=== PATIENT | female | born 1950 | race Caucasian/White ===

== ENCOUNTER 2023-01-29 14:54 | Outpatient (AMB) | payer MEDICARE, SELFPAY ==
--- NOTE | 2023-01-29 14:58 | A.OFFPC_ITS ---
Vital Signs 01/29/23 14:59 Height 5 ft 6 in Weight 215 lb 3 oz BMI 34.7 BP 138/78 Blood Pressure Location Lt brachial Position Sitting Respiration 12 Pulse 74 Pulse Source Pulse Oximeter Temp 97.9 F Temp Source Oral Pulse Oximetry (%) 97 Oxygen Delivery Method Room Air Handedness Right Intake Visit Reasons: NPV/Diabetic and medication Intake Note: Patient is here to establish care as a new patient and has a diagnosis of diabetes. Patient reports her last A1C was in October of 2022 @ 8%. Patient reports she was being followed by her previous PCP for diabetic care. 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 Patient reports she uses cologaurd vs colonoscopy. Patient reports her last mammogram was ~ 1 year ago. Detonator Assembler Required: No Accompanied by: Self / Same As Patient Allergies Sulfa (Sulfonamide Antibiotics) Allergy (Severe, Verified 01/29/23 15:09) Anaphylaxis Medication List - Last Reconciled 01/29/23 by Juliocesar Marie MD ergocalciferol (vitamin D2) 50,000 units PO .weekly escitalopram oxalate 20 mg PO DAILY glimepiride 4 mg PO BID hydrochlorothiazide 25 mg PO DAILY lisinopril 40 mg PO DAILY metformin ER 500 mg PO BID methocarbamol 750 mg PO BID PRN semaglutide (Rybelsus) 3 mg PO .Q AM Tobacco use date assessed: 01/29/23 Fall risk assessment: No Falls in past year Last assessed Fall Risk: 01/29/23 Dental Screening Dental Screen Date: 01/29/23 Did you have a dental visit in the last 12 months?: No Did you have a dental problem in the last 6 months where you did not have access to dental care?: No Was dental information given to patient?: Patient has dentist HPI NPV/Diabetic and medication HPI Details New patient Prior PCP:?Shaina Fonseca [place] Last office visit/CPE: 6 months Acute issue(s): Diabetes -Last A1c in October was 8.0%. Depression/Anxiety L1 Spondylolisthesis with low back pain and using methocarbamol. PMHx: Diabetes, Hypertension, Depression/Anxiety, Spondylolisthesis, Cardiac hypertrophy, benign inverted T-wave seen by Cardiology SurgHx: 2x D&Cs 1978 and 1977, x2, Gallbladder, Pancreatic drain due to Gallstone pancreatitis and drain FHx: Mom: HTN, CAD, Arthritis. Dad: Insulin dep. DM2, CAD, HTN SocHx: Nonsmoker. EtOH Occasional glass of wine or 2 max. No drugs. 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 ) Vision needs: Yes (needs new glasses) Questionnaire PHQ-9 Over the last 2 weeks, how often have you been bothered by any of the following problems? 1. Little interest or pleasure in doing things: not at all 2. Feeling down, depressed, or hopeless: not at all 3. Trouble falling or staying asleep, or sleeping too much: nearly every day 4. Feeling tired or having little energy: nearly every day 5. Poor appetite or overeating: several days 6. Feeling bad about yourself - or that you are a failure or have let yourself or your family down: several days 7. Trouble concentrating on things, such as reading the newspaper or watching television: not at all 8. Moving or speaking so slowly that other people could have noticed. Or the opposite - being so fidgety or restless that you have been moving around a lot more than usual: several days 9. Thoughts that you would be better off or of hurting yourself in some way: nearly every day Total score: 12 Depression Screening Interpretation: Positive Depression Screening Done: Yes [id number] - PHQ-9 Billing: Yes Source: Developed by Drs. Sebas Mejias, Nina French, Yon Cortez and colleagues, with an educational victor manuel from [employer]. Thrive Questionnaire Date Thrive assessed: 01/29/23 I am a: Patient What is your living situation today?: I have a steady place to live Within the past 12 months, did the food you bought not last and you didn't have the money to get more?: Never true Within the past 12 months, did you worry whether your food would run out before you got money to buy more?: Never true Do you have trouble paying for medicines?: No Do you have trouble getting transportation to medical appointments?: No Do you have trouble paying your heating and electricity bill?: No Do you have trouble taking care of your child, family member or friend?: Yes Do you have trouble with day-to-day activities such as bathing, preparing meals, shopping, managing finances, etc.?: No Are you currently unemployed and looking for a job?: No Are you interested in more education?: Yes Currently or been in a relationship where the following occur: no concerns reported AUDIT C Alcohol Use Questionnaire (AUDIT-C) 1. How often do you have a drink containing alcohol?: 2-4 times a month 2. How many drinks containing alcohol do you have on a typical day when you are drinking?: 1 or 2 3. How often do you have six or more drinks on one occasion?: Never Total Score: 2 KATHRYN-7 AMB Questionnaire KATHRYN-7 Date KATHRYN - 7 assessed: 01/29/23 Feeling nervous, anxious, or on edge: 1 = Several days Not being able to stop or control worryin = Several days Worrying too much about different things: 1 = Several days Trouble relaxin = Not at all Being so restless that it is hard to sit still: 1 = Several days Becoming easily annoyed or irritable: 0 = Not at all Feeling afraid as if something awful might happen: 1 = Several days Total KATHRYN-7 score (0-4 normal; 5-9 mild; 10-14 moderate; 15-21 severe): 5 Source: Developed by Drs. Sebas Mejias, Nina French, Yon Cortez and colleagues, with an educational victor manuel from [employer]. KATHRYN-7 Assessment Billing KATHRYN-7 Assessment Tool: KATHRYN-7 Assessment 50881 Review of Systems Const Denies chills, Denies fatigue, Denies fever(s), Denies headache(s) and Denies weakness ENT Denies dizziness and Denies headache(s) Card Denies chest pain, Denies lightheadedness, Denies dyspnea and Denies other (Palpitations) Resp Denies cough, Denies dyspnea, Denies wheezing and Denies other ( shortness of breath) Musc Denies numbness and Denies tingling Neuro Denies dizziness, Denies headache(s), Denies numbness, Denies tingling, Denies paresthesias and Denies weakness Psych Reports anxiety and Reports depression Endo Denies fatigue Aller/Immun Denies wheezing Physical exam (Primary Care) Vital Signs: Last Vital Signs Temp 97.9 F 01/29/23 14:59 Pulse 74 01/29/23 14:59 Resp 12 01/29/23 14:59 BP 138/78 01/29/23 14:59 Pulse Ox 97 01/29/23 14:59 Oxygen Delivery Method Room Air 01/29/23 14:59 BMI result Body Mass Index 34.7 Tobacco/Smoking Status: Tobacco use Status Tobacco use date assessed 01/29/23 01/29/23 15:23 Patient Tobacco Use Status Never used Tobacco 01/29/23 15:38 e-Cigarette/Vaping Use Never Used 01/29/23 15:38 PHQ-9: PHQ-9 Score PHQ-9: Total score 12 01/29/23 15:37 Depression Screening Interpretation: Positive Thrive Assessment: Date of Thrive Assessment Date Thrive assessed 01/29/23 01/29/23 15:31 Currently or been in a relationship where the following occur: no concerns reported Const General: no acute distress and well developed Nutritional Appearance: well nourished Orientation/consciousness: patient oriented x3 [facility] Head: Yes normocephalic and Yes atraumatic Eyes General: appearance normal, both eyes and all related structures Pupils: Equal, round and reactive pupils present EOM: EOMs intact bilaterally Resp Effort & Inspection: normal respiratory effort Auscultation: clear to auscultation bilaterally Cardio Rate: regular rate Rhythm: regular rhythm Heart sounds: S1 normal heart sound present, S2 normal heart sound present, no g allops, no murmurs and no rubs Neuro General: patient oriented x3 and gait normal Cranial nerves: Yes Equal, round and reactive pupils present Psych Affect: normal affect Assessment and Plan Assessment & Plan (1) Type 2 diabetes mellitus: Code(s): E11.9 - Type 2 diabetes mellitus without complications Plan: A1c?8%?in?October.??Poor?control.??Goal?is?less?than?7.0% Will?continue?glimepiride?and?metformin?and?increase?her semaglutide?from?3?mg?to?6?mg?daily (2) Hypertension: Code(s): I10 - Essential (primary) hypertension Plan: Blood?pressure?shows?fair?control?but?patient?has?a?history?of?myocardial?hypert rophy?and?notes?inverted?T-waves. Recommending?blood?pressure?goal?of?less?than?130/80 Encouraged?diet?lower?in?salt/sodium.??Encouraged?weight?loss?and?exercise. Will?follow-up?on?her?blood?pressure?at?he r?next?visit?and?if?blood?pressures?are?still?above?this?goal,?we?can?adjust?her ?medication (3) Depression with anxiety: Code(s): F41.8 - Other specified anxiety disorders Plan: Currently?taking?escitalopram?20?mg?daily PHQ-9?score?is?elevated.??She?also?notes?history?of?depression?and?an xiety.??Notes?increased?anxiety?currently?though?she?scoring?within?normal?limit s?for?anxiety. Denies?any?thoughts?of?self-harm Will?continue?escitalopram?and?patient?agreed?she?would?benefit?from?a?t herapist?so?asking?the?nurse?navigator?to?make?referral. (4) History of abnormal electrocardiogram: Code(s): Z86.79 - Personal history of other diseases of the circulatory system Plan: Patient?notes?a?history?of?inverted?T-waves.??She?says?she?has?had?cardiac?arsen p?with?a?websphere message broker developer?and?was?told?these?were??benign? She?also?notes?a?history?of?myocardial?hypertrophy. As?above,?advise?her?goal?for?blood?pressures?is?less?than?130/80 Will?check?an?EKG?at?her?next?visit. (5) Spondylolisthesis: Code(s): M43.10 - Spondylolisthesis, site unspecified Plan: Continue?methocarbamol May?benefit?from?physical?therapy?if?she?has?flare?up (6) Breast cancer screening by mammogram: Code(s): Z. - Encounter for screening mammogram for malignant neoplasm of breast Plan: Mammogram?ordered (7) Laboratory exam ordered as part of routine general medical examination: Code(s): Z00.00 - Encounter for general adult medical examination without abnormal findings Plan: Check?labs Orders: Orders Complete Blood Count Auto Diff Today Z00.00 - Encounter for general adult medical examination without abnormal findings Microalbumin, Random (w Creat) Today I10 - Essential (primary) hypertension TSH reflex Free T4 Today Z00.00 - Encounter for general adult medical examination without abnormal findings Vitamin D 25-OH Total Today E55.9 - Vitamin D deficiency, unspecified MM tomosynthesis screening BI Today Z12. - Encounter for screening mammogram for malignant neoplasm of breast Comprehensive [place]. Panel Fast Today Z00.00 - Encounter for general adult medical examination without abnormal findings Lipid Panel Today Z00.00 - Encounter for general adult medical examination without abnormal findings Hemoglobin A1c Today R73.01 - Impaired fasting glucose UA and rflx microscopic Today Z00.00 - Encounter for general adult medical examination without abnormal findings AMB EKG-In Office Today Z86.79 - Personal history of other diseases of the circulatory system Referrals Nurse Navigator Referral F41.8 - Other specified anxiety disorders Medications: New semaglutide (Rybelsus) Take before breakfast 6 mg (2 x 3 mg) PO .Q AM 60 tabs 2RF 30 days Coding Level of Care Code New Pt Level 3 (16301) Diagnoses Type 2 diabetes mellitus E11.9 Hypertension I10 Depression with anxiety F41.8 History of abnormal electrocardiogram Z86.79 Spondylolisthesis M43.10 Breast cancer screening by mammogram Z12. Laboratory exam ordered as part of routine general medical examination Z00.00 Additional Codes KATHRYN-7 Assessment Billing - KATHRYN-7 Assessment Tool: KATHRYN-7 Assessment [id number] ([id number])
[2023-01-29 14:59] VITALS: BP 138/78; PULSE 74; RESP 12; TEMP 36.6; O2SAT 97; BMI 34.7
== END 2023-01-29 16:13 | disposition home or self-care (01) ==
PROVIDERS: PCP Family Medicine; Visit Provider Family Medicine
DX: E11.9 Type 2 diabetes mellitus without complications (principal); I10 Essential (primary) hypertension; F41.8 Other specified anxiety disorders; Z86.79 Personal history of other diseases of the circulatory system; M43.10 Spondylolisthesis, site unspecified
CPT/HCPCS: 93000; 96127; 99203

== ENCOUNTER 2023-02-27 14:01 | Outpatient (REF) | payer MEDICARE, SELFPAY ==
--- NOTE | ~2023-02-27 | MM_ITS ---
EXAMINATION: MM SCREENING DIGITAL BREAST TOMOSYNTHESIS, BILATERAL CLINICAL INFORMATION: Screening. Asymptomatic. COMPARISON: Mammography: This study is compared with prior exams dating back to 2021. TECHNIQUE: Digital breast tomosynthesis is performed in both the craniocaudal and mediolateral oblique views along with computer-aided detection (CAD). Synthesized 2D images are generated from the tomosynthesis. FINDINGS: The breasts are almost entirely fatty (ACR BI-RADS breast composition Category a). There are no significant masses, abnormal calcifications, or other abnormalities. MM/MM tomosynthesis screening BI IMPRESSION: No mammographic evidence of malignancy. ASSESSMENT: BI-RADS BI-RADS 1 - Negative RECOMMENDATION: Routine annual mammography screening. 1 year F/U This examination should not preclude the clinical evaluation of a suspicious palpable abnormality. This patient's information was entered into a reminder system with a target due date for their next mammogram.
== END 2023-02-27 14:02 | disposition home or self-care (01) ==
LOC: HO.MAMMO 14:01
PROVIDERS: PCP Family Medicine; Visit Provider Family Medicine
DX: Z12.31 Encounter for screening mammogram for malignant neoplasm of breast (principal)
CPT/HCPCS: 77063; 77067

== ENCOUNTER → 2023-02-27 14:06 | Outpatient (BNV) | payer MEDICARE, SELFPAY | PROVIDERS: PCP Family Medicine; Visit Provider Radiology Diagnostic Radiology | DX: Z12.31 Encounter for screening mammogram for malignant neoplasm of breast (principal) | CPT/HCPCS: 77063; 77067 ==

== ENCOUNTER 2023-04-26 13:59 | Outpatient (REF) | payer MEDICARE, SELFPAY ==
[2023-04-26 14:16] LABS: MANUAL DIFF FLAG NO
[2023-04-26 15:35] LABS: Estimated Average Glucose 146 mg/dL; Hemoglobin A1c % 6.7 % (<6.0)
[2023-04-26 15:38] LABS: Appearance Urine Clear; Color Urine Yellow; Glucose Urine UA >=1000 mg/dL (Negative); Leukocyte Esterase Urine Negative (Negative); Nitrite Urine Negative (Negative); PH 5.5 (5.0-9.0); Specific Gravity - Urine >= 1.030 (1.005-1.025); UMIC TRIGGER UA YES; Urine Blood Negative (Negative); Urine Ketones Negative (Negative); Urine Protein Negative (Neg-Trace)
[2023-04-26 15:39] LABS: Basophils Percent Auto 0.5 % (0-2); Eosinophils Absolute Auto 0.1 X10*3/uL (0.0-0.4); Eosinophils Percent Auto 1.7 % (0-4); Hematocrit 37.4 % (37.0-47.0); Imm Gran Abs Auto 0.03 X10*3/uL (0.00-0.03); Imm Gran Pct Auto 0.5 % (0.0-0.4); Lymphocytes Absolute Auto 2.8 X10*3/uL (1.2-4.9); Mean Corpuscular HGB Conc 34.8 g/dl (31.0-35.0); Mean Corpuscular Volume 94.9 fL (80.0-98.0); Mean Platelet Volume 9.2 fL (9.4-12.3); Monocytes Absolute Auto 0.4 X10*3/uL (0.1-1.2); Monocytes Percent Auto 6.7 % (2-11); Neutrophils Absolute Auto 3.1 x10*3/uL (2.0-8.3); Neutrophils Percent Auto 47.6 % (45-73); Platelet Count 278 X10*3/uL (160-400); Red Blood Count 3.94 X10*6/uL (4.20-5.50); Red Cell Distribution Width 12.3 % (11.0-16.0); White Blood Count 6.4 X10*3/uL (4.8-10.8)
[2023-04-26 15:44] LABS: Bacteria Urine None Seen (None Seen); Hyaline Casts Urine 0-2 /LPF (0-2); RBC Urine 0-2 /HPF (0-2); Squamous Epithelial Cell Urine 0-2 /HPF (0-2); WBC Urine 0-5 /HPF (0-5)
[2023-04-26 15:59] LABS: Creatinine Urine 140.38 mg/dL; Microalbum/Creatinine Ratio Ur 6.4 ug/mg cr (<30)
[2023-04-26 16:11] LABS: Alanine Aminotransferase 46 U/L (0-31); Albumin Level 4.4 g/dL (3.5-5.0); Alkaline Phosphatase 42 U/L (39-117); Anion Gap 16 (12-20); Aspartate Amino Transferase 42 U/L (5-31); Bilirubin Total 0.6 mg/dL (0.0-1.0); Blood Urea Nitrogen 14 mg/dL (9-16); Calcium 9.9 mg/dL (8.4-10.2); Carbon Dioxide 27 mmol/L (22-29); Chloride 102 mmol/L (96-108); Cholesterol 187 mg/dL (<200); Estimated Glomerular Filt Rate > 60; Glucose Fasting 134 mg/dL (60-99); HDL Cholesterol 58 mg/dL (>40); LDL Cholesterol Calculated 90 mg/dL (<100); Potassium 3.8 mmol/L (3.3-5.1); Sodium 141 mmol/L (135-145); Total Protein 7.3 g/dL (6.5-8.0); Triglycerides 199 mg/dL (<150)
[2023-04-26 16:26] LABS: TSH reflex Free T4 2.36 uIU/mL (0.32-4.0); Vitamin D 25-OH Total 35.9 ng/mL (>30)
== END 2023-04-26 14:00 | disposition home or self-care (01) ==
LOC: HO.LAB 13:59
PROVIDERS: PCP Family Medicine; Visit Provider Family Medicine
DX: Z00.00 Encounter for general adult medical examination without abnormal findings (principal); I10 Essential (primary) hypertension; E55.9 Vitamin D deficiency, unspecified; R73.01 Impaired fasting glucose
CPT/HCPCS: 36415; 80053; 80061; 81001; 82043; 82306; 82570; 83036; 84443; 85025

== ENCOUNTER 2023-05-06 11:38 | Outpatient (AMB) | payer MEDICARE, SELFPAY ==
--- NOTE | 2023-05-06 12:02 | A.OFFPC_ITS ---
Vital Signs 05/06/23 12:04 Height 5 ft 6 in Weight 216 lb 8 oz BMI 34.9 BP 126/68 Blood Pressure Location Lt brachial Position Sitting Pulse 89 Pulse Source Pulse Oximeter Pulse Oximetry (%) 96 Oxygen Delivery Method Room Air Intake Visit Reasons: cpe follow up labs Intake Note: Patient is here for follow up on physical, labs. Patient states she never heard from counseling referral. Allergies Sulfa (Sulfonamide Antibiotics) Allergy (Severe, Verified 05/06/23 12:11) Anaphylaxis Tobacco use date assessed: 05/06/23 Fall risk assessment: No Falls in past year Last assessed Fall Risk: 05/06/23 HPI cpe follow up labs HPI Details 72 y/o female presents for a CPE with f/ u labs and health maintenance. Labs were drawn 04/26/23. Reviewed labs with pt. RBC low at 3.94. Elevated liver enzymes. AST 42. ALT 46. Pt reports she has known fatty liver disorder. Last liver ultrasound about 2 years ago per pt. Triglycerides 199. TC 187. LDL 90. HDL 58. Pt denies any chest pain recently. Pt did note an episode of tachycardia recently that lasted several days. She reports lexapro much improved symptoms. Recent A1c 6.7%. She reports it attracts blood sugars at home. Mammogram in March and is up to date. She reports last cologuard was about 2 years ago. She has not had a colonoscopy yet. She reports she is due for a bone density test. [facility] Medical History Sinusitis GERD (gastroesophageal reflux disease) Liver disease Type 2 diabetes mellitus Surgical History History of adenoidectomy Hx of tonsillectomy History of section History of dilation and curettage History of cholecystectomy History of hysterectomy Family History Mother Hypertension Cardiovascular disease Thyroid disorder Father Diabetes Cardiovascular disease Alcohol abuse Maternal Grandfather Diabetes Paternal Grandfather Diabetes Sister Diabetes Social History Household Members: None Housing: Apartment Alcohol intake: current Alcohol intake frequency: a few times a month Alcohol type: wine Patient Tobacco Use Status: Never used Tobacco e-Cigarette/Vaping Use: Never Used service: No 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 ) Vision needs: Yes (needs new glasses) Questionnaire Thrive Questionnaire Date Thrive assessed: 01/29/23 KATHRYN-7 AMB Questionnaire KATHRYN-7 Date KATHRYN - 7 assessed: 01/29/23 Source: Developed by Drs. Sebas Mejias, Nina French, Yon Cortez and colleagues, with an educational victor manuel from [employer]. Review of Systems Const Denies chills, Denies fatigue, Denies fever(s), Denies headache(s) and Denies weakness Eyes Denies change in vision ENT Denies dizziness, Denies headache(s), Denies hearing loss, Denies nasal congestion, Denies sinus pain, Denies sinus pressure and Denies sore throat Card Denies chest pain, Denies lightheadedness, Denies dyspnea and Denies other (palpitations) Resp Denies cough, Denies dyspnea and Denies wheezing GI Denies abdominal pain, Denies melena, Denies hematochezia, Denies change in bowel habits, Denies dyspepsia and Denies nausea Denies hematuria and Denies dysuria Musc Denies abnormal gait, Denies myalgias, Denies arthralgias, Denies numbness and Denies tingling Skin/Breast Denies rash, Denies unusual bruising and Denies wounds Neuro Denies abnormal gait, Denies dizziness, Denies headache(s), Denies memory loss, Denies numbness, Denies Sensory deficit (Neuro), Denies tingling and Denies weakness Psych Denies anxiety, Denies depression and Denies memory loss Endo Denies cold intolerance, Denies fatigue, Denies heat intolerance, Denies polydipsia and Denies polyuria Kip/Lymph Denies easy bleeding and Denies easy bruising Aller/Immun Denies wheezing Physical exam (Primary Care) Vital Signs: Last Vital Signs Pulse 89 05/06/23 12:04 BP 126/68 05/06/23 12:04 Pulse Ox 96 05/06/23 12:04 Oxygen Delivery Method Room Air 05/06/23 12:04 BMI result Body Mass Index 34.9 Tobacco/Smoking Status: Tobacco use Status Tobacco use date assessed 05/06/23 05/06/23 12:14 Patient Tobacco Use Status Never used Tobacco 05/06/23 12:04 e-Cigarette/Vaping Use Never Used 05/06/23 12:04 Thrive Assessment: Date of Thrive Assessment Date Thrive assessed 01/29/23 05/06/23 12:04 Const General: no acute distress, well developed, alert and awake Nutritional Appearance: well nourished Orientation/consciousness: patient oriented x3 [facility]MT Head: Yes normocephalic and Yes atraumatic Ears: hearing grossly normal bilaterally and TM's normal bilaterally General nose exam: Normal external nose present and Normal nares present Mouth: Normal oral and palatal mucosa present and moist mucous membranes Teeth and gingiva: dentition normal Throat: Yes posterior oropharynx normal Eyes General: appearance normal, both eyes and all related structures Pupils: Equal, round and reactive pupils present and Pupil accommodation reflex normal EOM: EOMs intact bilaterally Neck Neck: Yes normal visual inspection, Yes no lymphadenopathy and Yes trachea midline Thyroid: Thyroid normal Carotids: no bruits Lymphatic: no lymphadenopathy noted Chest Chest palpation & inspection: normal inspection of the chest Resp Effort & Inspection: normal respiratory effort Auscultation: clear to auscultation bilaterally Cardio Rate: regular rate Rhythm: regular rhythm Heart sounds: S1 normal heart sound present, S2 normal heart sound present, no gallops, no murmurs and no rubs Bruits: no abdominal aortic bruits and no carotid bruits GI Palpation (GI): No Abdominal aortic bruit present, Soft to palpation, nontender, No hepatosplenomegaly present and No Rebound tenderness present Auscultation: normal bowel sounds General: Yes no CVA tenderness Back/Spine/Pelvis Back: no CVA tenderness Cervical Spine: cervical ROM normal and No Cervical spine tenderness Thoracic/Lumbar Spine: thoraco-lumbar ROM normal, No pain with thoraco-lumbar ROM, No thoracic spinal tenderness and No lumbar spinal tenderness Skin Lesions: no lesions Rashes: no rashes Trauma: no lacerations or abrasions Wounds: no wounds Nails: normal Neuro General: patient oriented x3 Cranial nerves: Yes Equal, round and reactive pupils present Cognition (Neuro): normal cognition Gait exam (Neuro): Normal gait present Motor exam (neuro): 5/5 motor strength present throughout Sensory Exam: No Sensory deficit (Neuro) Deep tendon reflexes (DTR's): Right patellar reflex intensity grade: 2+ and Left patellar reflex intensity grade: 2+ Extrem General: Yes normal to inspection and No edema Psych Appearance: grossly normal Affect: normal affect Attitude: cooperative Thought process: Normal thought process present Assessment and Plan Assessment & Plan (1) Hypertension: Code(s): I10 - Essential (primary) hypertension Plan: Blood?pressure?126/68.??Recommended?goal?of?less?than?130/80; history?of?abnormal?EKG?and?question?of?cardiomyopathy Continue?current?medication?regimen (2) History of abnormal electrocardiogram: Code(s): Z86.79 - Personal history of other diseases of the circulatory system Plan: Patient?notes?abnormal?EKG?in?the?past?with?workup?showing?cardiomyopathy EKG:??Normal?sinus?rhythm,?normal?axis,?no?hypertrophy,?isolated?Q?in?lead?3; ??inferior?infarct,?inverted?T-waves?V3?through?V5;???ischemia. (3) Type 2 diabetes mellitus: Code(s): E11.9 - Type 2 diabetes mellitus without complications Plan: A1c?6.7%?at?recent?check.??Good?control.??Goal?is?less?than?7.0% Continue?current?medication?regimen (4) Depression with anxiety: Code(s): F41.8 - Other specified anxiety disorders Plan: Patient?was?referred?to?therapist.??She?is?taking?escitalopram. Still?awaiting?appointment?with?a?therapist Continue?escitalopram She?will?let?me?know?if?she?has?any?worsening?problems - would?ask?the?nurse?navigator?to?expedite?her?referral appointment (5) Breast cancer screening by mammogram: Code(s): Z12.31 - Encounter for screening mammogram for malignant neoplasm of breast Plan: Mammogram?in?January?showed?no?evidence?of?malignancy. Will?continue?annual?screening (6) Screening for osteoporosis: Code(s): Z13.820 - Encounter for screening for osteoporosis Plan: Patient?notes?that?she?has?osteopenia Last?bone?density?test?about?2?years?ago - due Bone?density?ordered Continue?to?get?good?sources?of?calcium?and?vitamin-D. Encouraged?weight-bearing?exercise?and?walking (7) Depression: Code(s): F32.A - Depression, unspecified Plan: Taking?escitalopram Awaiting?therapist?appointment?as?mentioned?above (8) Screening for colon cancer: Code(s): Z12.11 - Encounter for screening for malignant neoplasm of colon Plan: Patient?gets?Cologuard?test. Will?get?next?Cologuard?test?next?year (9) Elevated liver enzymes: Code(s): R74.8 - Abnormal levels of other serum enzymes Plan: Mildly?elevated?liver?enzymes.??She?has?been?told?she?has?fatty?liver?disorder Will?recheck?these Encouraged?weight?loss Encouraged?good?hydration Orders: Orders XR DEXA axial skeleton Today M81.0 - Age-related osteoporosis without current pathological fracture Referrals Ophthalmology Referral E11.9 - Type 2 diabetes mellitus without complications Podiatry Referral E11.9 - Type 2 diabetes mellitus without complications Cardiology Referral R94.31 - Abnormal electrocardiogram [ECG] [EKG] Medications: New empagliflozin (Jardiance) 10 mg PO QAM 90 days 90 tabs 3RF Discontinued semaglutide (Rybelsus) Take before breakfast Discontinued Reason: Doctor's Order 6 mg (2 x 3 mg) PO .Q AM 30 days 60 tabs 2RF Coding Level of Care Code Est Pt Level 3 (77915) Est Pt Prev Care >65y(99860) Diagnoses Hypertension I10 History of abnormal electrocardiogram Z86.79 Type 2 diabetes mellitus E11.9 Depression with anxiety F41.8 Breast cancer screening by mammogram Z12.31 Screening for osteoporosis Z13.820 Depression F32.A Screening for colon cancer Z12.11 Elevated liver enzymes R74.8
[2023-05-06 12:04] VITALS: BP 126/68; PULSE 89; O2SAT 96; BMI 34.9
== END 2023-05-06 12:29 | disposition home or self-care (01) ==
PROVIDERS: PCP Family Medicine; Visit Provider Family Medicine
DX: Z00.00 Encounter for general adult medical examination without abnormal findings (principal); E11.9 Type 2 diabetes mellitus without complications; I10 Essential (primary) hypertension; Z86.79 Personal history of other diseases of the circulatory system; Z12.31 Encounter for screening mammogram for malignant neoplasm of breast; F41.8 Other specified anxiety disorders; Z13.820 Encounter for screening for osteoporosis; F32.A Depression, unspecified; Z12.11 Encounter for screening for malignant neoplasm of colon; R74.8 Abnormal levels of other serum enzymes
CPT/HCPCS: 99213; 99397

== ENCOUNTER 2023-05-22 12:57 | Outpatient (REF) | payer MEDICARE, MEDICAID, SELFPAY ==
--- NOTE | ~2023-05-22 | MM_ITS ---
EXAMINATION: BONE DENSITOMETRY CLINICAL INDICATION: Age-related osteoporosis without current pathological fracture. COMPARISON: This is the patient's baseline examination. TECHNIQUE: Using a [employer] DXA System (software version: 13.1) manufactured by [employer], dual-energy x-ray absorptiometry was performed of the lumbar spine and left hip. The images are of good technical quality. Summary results are attached. FINDINGS: LEFT FEMUR, NECK: BMD 0.819 g/cm2, Z-score -0.3, T-score -1.6, osteopenia. LEFT FEMUR, TOTAL: BMD 0.972 g/cm2, Z-score 0.7, T-score -0.3, normal. AP SPINE L1-L3 (excluding L4): The data of L1-L4 has been changed to exclude the L4 vertebral body, because degenerative increased sclerosis at this level may cause overestimation of lumbar spine density. BMD 0.878 g/cm2, Z-score -1.6, T-score -2.4, osteopenia. IDENTIFIED RISK FACTORS: Menopause, hysterectomy, bilateral oophorectomy, height loss, history of fracture (adult), thiazide. HISTORY OF FRACTURE: Humerus. MEDICATIONS: Calcium supplements or multivitamin, vitamin D. MM/XR DEXA axial skeleton IMPRESSION: 1. DIAGNOSIS: Osteopenia based on the lowest T-score value of -2.4 in the lumbar spine applying World Health Organization criteria. 2. 10-YEAR FRACTURE RISK PREDICTION, FRAX: Major osteoporotic fracture (clinical spine, forearm, hip or shoulder) 16.2%. Hip fracture 2.6%. 3. Treatment Recommendations: NOF guidelines recommend consideration for treatment in postmenopausal women and men age 50 and older presenting with the following: -A hip or vertebral (clinical or morphometric) fracture. -T-score less than or equal to -2.5 at the femoral neck or spine after appropriate evaluation to exclude secondary causes. -Low bone mass at the hip or spine and a 10-year fracture probability by FRAX of greater than or equal to 3% for hip fracture or greater than or equal to 20% for major osteoporotic fracture based on the [place] adapted WHO algorithm. 4. Other Recommendations: All treatment decisions require clinical judgment and consideration of individual patient factors, including patient preferences, comorbidities, previous drug use, risk factors not captured in the FRAX model (e.g. frailty, falls, vitamin D deficiency, increased bone turnover, interval significant decline in bone density) and possible under or overestimation of fracture risk by FRAX. Additional medical evaluation for secondary cause of low bone mineral density may be appropriate. FUTURE SCAN RECOMMENDATION: People with diagnosed cases of osteoporosis or at high risk for fracture should have regular bone mineral density tests. For patients eligible for Medicare, routine testing is allowed once every 2 years. The testing frequency can be increased to one year for patients who have rapidly progressing disease, those who are receiving or discontinuing medical therapy to restore bone mass, or have additional risk factors.
== END 2023-05-22 12:58 | disposition home or self-care (01) ==
LOC: HO.MAMMO 12:57
PROVIDERS: PCP Family Medicine; Visit Provider Family Medicine
DX: Z13.820 Encounter for screening for osteoporosis (principal); Z78.0 Asymptomatic menopausal state; M81.0 Age-related osteoporosis without current pathological fracture
CPT/HCPCS: 77080

== ENCOUNTER 2023-06-28 10:03 | Outpatient (AMB) | payer MEDICARE, MEDICAID, SELFPAY ==
--- NOTE | 2023-06-28 10:09 | MHC.PC.OV ---
Vital Signs 06/28/23 10:15 06/28/23 10:25 06/28/23 10:35 Height 5 ft 6 in Weight 219 lb 2 oz BMI 35.4 BP 158/100 H 139/100 H 150/90 H Blood Pressure Location Lt brachial Lt brachial Rt brachial Position Sitting Sitting Sitting Respiration 14 Pulse 68 Pulse Source Pulse Oximeter Temp 98.1 F Temp Source Oral Pulse Oximetry (%) 95 Oxygen Delivery Method Room Air Intake Visit Reasons: [facility] discharge Intake Note: Hospital follow up. 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 Allergies Sulfa (Sulfonamide Antibiotics) Allergy (Severe, Verified 06/28/23 10:30) Anaphylaxis Medication List - Last Reviewed 06/28/23 by Celia Marion CMA aspirin 81 mg PO DAILY atorvastatin (Lipitor) 40 mg PO DAILY empagliflozin (Jardiance) 10 mg PO QAM 90 days escitalopram oxalate 20 mg PO DAILY 90 days glimepiride 4 mg PO BID 30 days hydrochlorothiazide 25 mg PO DAILY lisinopril 40 mg PO DAILY 90 days metformin 1,000 mg PO BID methocarbamol 750 mg PO BEDTIME PRN 30 days metoprolol tartrate 25 mg PO DAILY Tobacco use date assessed: 06/28/23 Fall risk assessment: No Falls in past year Last assessed Fall Risk: 06/28/23 Dental Screening Dental Screen Date: 06/28/23 Did you have a dental visit in the last 12 months?: No Did you have a dental problem in the last 6 months where you did not have access to dental care?: No Was dental information given to patient?: Patient has dentist HPI HPI Comments History of Present Illness Details 72-year-old female admitted to [facility] on 06/16/2023 and discharged home 06/17/2023. Admitting diagnosis was elevated troponin and palpitations. Cardiology was consulted and has a high suspicion for AFib. She was started on beta blockade, statin therapy due to her elevated risk and presence of type 2 diabetes as well as a low-dose aspirin. Outpatient follow up includes 2 weeks with Cardiology for an exercise echocardiogram as well as a Zio monitor. New medications aspirin 81 mg p.o. daily Atorvastatin 40 mg p.o. daily Metoprolol ER 25 mg p.o. daily She presents today feeling well. States she needs to f/u with [employer] as her insurance is not accepeted at [facility]. Has echo stress test schedule in of June w/ to fu with Dr Castaneda. Did have some BLE edema that occured around the time she presented to the hospital.This has resolved. Taking all meds as prescribed. Feels she loses energy and SOB with ADLs. Taking BB at HS. BP WNL at home SBP in the 130's P in the 80's. Denies chest pain, syncope. [facility] Medical History Sinusitis GERD (gastroesophageal reflux disease) Liver disease Type 2 diabetes mellitus Surgical History History of adenoidectomy Hx of tonsillectomy History of section History of dilation and curettage History of cholecystectomy History of hysterectomy Family History Mother Hypertension Cardiovascular disease Thyroid disorder Father Diabetes Cardiovascular disease Alcohol abuse Maternal Grandfather Diabetes Paternal Grandfather Diabetes Sister Diabetes Social History Household Members: None Housing: Apartment Alcohol intake: current Alcohol intake frequency: a few times a month Alcohol type: wine Patient Tobacco Use Status: Never used Tobacco e-Cigarette/Vaping Use: Never Used Second Hand Smoke Exposure: No service: No 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 ) Vision needs: Yes (needs new glasses) Questionnaire Thrive Questionnaire Date Thrive assessed: 01/29/23 KATHRYN-7 AMB Questionnaire KATHRYN-7 Date KATHRYN - 7 assessed: 01/29/23 Source: Developed by Drs. Sebas Mejias, Nina French, Yon Cortez and colleagues, with an educational victor manuel from [employer]. Review of Systems Const All systems reviewed & are unremarkable except as noted in HPI and below Physical exam (Primary Care) Vital Signs: Last Vital Signs Temp 98.1 F 06/28/23 10:15 Pulse 68 06/28/23 10:15 Resp 14 06/28/23 10:15 BP 139/100 H 06/28/23 10:25 Pulse Ox 95 06/28/23 10:15 Oxygen Delivery Method Room Air 06/28/23 10:15 Care Plan Goal for BP management: cont meds,fu w cards, monitor at home Next steps: cont meds,fu w cards, monitor at home BMI result Body Mass Index 35.4 BMI Assessment/Plan discussion: High BMI High, discussed plan: lifestyle Tobacco/Smoking Status: Tobacco use Status Tobacco use date assessed 06/28/23 06/28/23 10:19 Patient Tobacco Use Status Never used Tobacco 06/28/23 10:19 e-Cigarette/Vaping Use Never Used 06/28/23 10:19 Thrive Assessment: Date of Thrive Assessment Date Thrive assessed 01/29/23 06/28/23 10:19 Const Other: awake alert cooperative RRR LS CTAB No edema BLE Mildly anxious but appropriate Assessment and Plan Assessment & Plan (1) Hospital discharge follow-up: Code(s): Z09 - Encounter for follow-up examination after completed treatment for conditions other than malignant neoplasm Plan: Blood pressure elevated today blood pressure monitoring at home is normal. She takes the metoprolol lisinopril and hydrochlorothiazide at bedtime. Reports that in the past taking in the morning has made her feel unwell. Encouraged her to take lisinopril 20 mg in the morning and 20 mg at bedtime to see if this helps improve her blood pressure control without side effects. Continue taking your statin as well as baby aspirin. Follow up with the web user experience strategist. Educated on signs and symptoms to seek additional care prior to next scheduled appointment with primary care provider (2) Hypertension: Code(s): I10 - Essential (primary) hypertension Qualifiers: Hypertension type: primary hypertension Qualified Code(s): I10 - Essential (primary) hypertension Plan This note is constructed using voice recognition software. While every effort has been made to ensure accuracy in gas appliance installer, still errors may have been included Sometimes, these errors may affect the content or meaning of the given sentence . Total time spent caring for the patient today was 45 minutes. This includes time spent before the visit reviewing the chart, time spent during the visit, and time spent after the visit on documentation Patient Instructions: Monitor BP at home. Goal BP range is < 140/90 P range < 90 If elevated, call PCP or Cards. Try taking Lisinopril 20mg in the AM and 20mg in the evening to see if that provides better BP control w/o side effects. Coding Level of Care Code TCM Mod MDM <= 14 Days Diagnoses Hospital discharge follow-up Z09 Primary hypertension I10 Hypertension type: primary hypertension
[2023-06-28 10:15] VITALS: BP 158/100; PULSE 68; RESP 14; TEMP 36.7; O2SAT 95; BMI 35.4
[2023-06-28 10:25] VITALS: BP 139/100
[2023-06-28 10:35] VITALS: BP 150/90
== END 2023-06-28 10:52 | disposition home or self-care (01) ==
PROVIDERS: PCP Family Medicine; Visit Provider Nurse Practitioner Family
DX: I10 Essential (primary) hypertension (principal); Z09 Encounter for follow-up examination after completed treatment for conditions other than malignant neoplasm
CPT/HCPCS: 99215

== ENCOUNTER → 2023-07-03 09:05 | Outpatient (REF) | payer MEDICARE, OTHER, SELFPAY ==
--- NOTE | 2023-07-03 09:09 | CA_ITS ---
Acquisition Time: 2023-07-03 09:21:06 Total Exercise Time: 00:01:43 Test Indications: abn ekg Medications: Protocol: XI Max HR: 094 BPM 63% of Pred: 148 BPM Max BP: 142/078 mmHG Max Work Load: 4.0 METS Exercise stress test exercise 1 min 43 sec of Xi protocol achieving 62% MPHR, patient jumped to side of treadmill due to shortness of breath, without chest discomfort, wiith isolated PVC, with normotensive response to exercise, with nondiagnoisitic EKGs. Tets reviewed with Dr. Castaneda Referred By: Juliocesar Marie Overread By: Karina Barnett
== END ==
LOC: HO.CARD 09:05
PROVIDERS: PCP Family Medicine; Visit Provider Family Medicine
DX: R94.31 Abnormal electrocardiogram [ECG] [EKG] (principal)
CPT/HCPCS: 93017

== ENCOUNTER → 2023-07-03 09:09 | Outpatient (BNV) | payer MEDICARE, MEDICAID, SELFPAY | PROVIDERS: PCP Family Medicine; Visit Provider Nurse Practitioner | DX: R06.02 Shortness of breath (principal) | CPT/HCPCS: 93016; 93018 ==

== ENCOUNTER 2023-07-22 13:41 | Outpatient (AMB) | payer MEDICARE, MEDICAID, SELFPAY ==
[2023-07-22 14:04] VITALS: BP 160/82; PULSE 65; BMI 35.2
--- NOTE | 2023-07-22 14:04 | A.OFFVIS_ITS ---
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/ Frank/Abnormal electrocardiogram Mechanics Handyman Required: No Accompanied by: Self / Same As Patient Allergies Sulfa (Sulfonamide Antibiotics) Allergy (Severe, Verified 06/28/23 10:30) Anaphylaxis Medication List - Last Reconciled 07/22/23 by Cedric Castaneda MD aspirin 81 mg PO DAILY atorvastatin (Lipitor) 40 mg PO DAILY empagliflozin (Jardiance) 10 mg PO QAM 90 days escitalopram oxalate 20 mg PO DAILY 90 days glimepiride 4 mg PO BID 30 days hydrochlorothiazide 25 mg PO DAILY lisinopril 40 mg PO DAILY 90 days metformin 1,000 mg PO BID methocarbamol 750 mg PO BEDTIME PRN 30 days metoprolol tartrate 25 mg PO DAILY HPI Comments Details: Thank you for referring Kylie in cardiology consultation today for abnormal EKG. Since then she underwent a stress test which she was able to only performed 1 minute and 30 seconds with suboptimal heart rate with a nondiagnostic EKG. Following that in May she ended up going to [place] emergency room with palpitations with heart rate up to 177 beats per minute on a pulse oximeter with chest pain. Symptoms lasted for an hour and she ended up going to the emergency room. The EKG in the emergency room shows sinus tachycardia with PVCs. However she was told that she might have had SVT. She was started on metoprolol therapy. She also had enzyme leak with troponins are but did not undergo any testing while at the hospital. She was prescribed aspirin high-intensity statin therapy which she is taking along with her metoprolol therapy. She says she would similar episode about 2 years ago while she was in [place] her heart rate was up to 140 beats per minute. She had a myocardial perfusion imaging test there which was reported as per her as normal. She comes here for follow-up. She continues to have symptoms of exertional shortness of breath although she says that the treadmill shortness of breath was much more severe. She says she walks with her dogs but when she goes up inclines she does get short of breath. No orthopnea, PND, leg edema. She said her chest x-ray did show cardiomegaly. She denies any lightheadedness, syncope. Taking all her medications regularly. [facility] Medical History Sinusitis GERD (gastroesophageal reflux disease) Liver disease Type 2 diabetes mellitus Surgical History History of adenoidectomy Hx of tonsillectomy History of section History of dilation and curettage History of cholecystectomy History of hysterectomy Family History Mother Hypertension Cardiovascular disease Thyroid disorder Father Diabetes Cardiovascular disease Alcohol abuse Maternal Grandfather Diabetes Paternal Grandfather Diabetes Sister Diabetes Social History Household Members: None Housing: Apartment Alcohol intake: current Alcohol intake frequency: a few times a month Alcohol type: wine Patient Tobacco Use Status: Never used Tobacco e-Cigarette/Vaping Use: Never Used Second Hand Smoke Exposure: No service: No 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 ) Vision needs: Yes (needs new glasses) Review of Systems Const Denies chills, Denies fatigue, Denies fever(s), Denies frequent falls, Denies weakness, Denies weight gain and Denies weight loss ENT Denies dizziness Card Denies chest pain, Denies leg edema, Denies lightheadedness, Denies palpitations, Denies dyspnea and Denies dyspnea on exertion Resp Denies cough, Denies dyspnea and Denies dyspnea on exertion GI Denies hematochezia Musc Denies abnormal gait, Denies muscle weakness, Denies numbness, Denies radiating pain into limb and Denies tingling Neuro Denies abnormal gait, Denies dizziness, Denies frequent falls, Denies numbness, Denies tingling and Denies weakness Endo Denies fatigue and Denies palpitations Physical Exam Vital Signs: Last Vital Signs Pulse 65 07/22/23 14:04 BP 160/82 H 07/22/23 14:04 BMI result Body Mass Index 35.2 Const General: cooperative, comfortable, no acute distress, alert and awake Nutritional Appearance: obese Orientation/consciousness: patient oriented x3 Limitations: no limitations HEENT Head: Yes normocephalic and Yes atraumatic Neck Neck: Yes trachea midline, Yes supple and Yes no JVD Resp Effort & Inspection: normal respiratory effort Auscultation: clear to auscultation bilaterally Cardio Jugular venous distension: no JVD Palpation: normal PMI Rate: regular rate Rhythm: regular rhythm Heart sounds: S1 normal heart sound present, S2 normal heart sound present, no c lick, no gallops, no murmurs and no rubs GI Auscultation: normal bowel sounds Skin General skin exam: no rashes or lesions noted Neuro General: patient oriented x3 and no focal motor deficits Extrem General: Yes no clubbing, cyanosis or edema Psych Appearance: grossly normal Assessment & Plan Assessment & Plan (1) SOB (shortness of breath) on exertion: Code(s): R06.02 - Shortness of breath Category: Medical Plan: Patient with abnormal EKG with recent abnormal stress test with significant shortness of breath with low exercise capacity with sub optimal heart rate response and nondiagnostic EKG. She requires further evaluation for myocardial ischemia given that she had recent hospitalization with rapid heart rate with elevated troponins. High likelihood of obstructive coronary artery disease given her multiple risk factors including hypertension, diabetes, obesity, advanced age. Agree with aspirin and statin therapy as prescribed. Will suggest a vasodilating myocardial perfusion imaging. Will also suggest an echocardiogram to evaluate LV systolic and diastolic function to evaluate for pulmonary hypertension. These tests will be scheduled in near future. Further treatment based on the findings. Continue aggressive vascular risk factor modification. Agree with high-intensity statin therapy with target goal LDL less than 70 mg/dL given her underlying diabetes which is coronary artery disease equivalent. Blood pressure is currently well optimized. Encouraged to participate in weight loss program. Once the stress test is negative will recommend her to participate in regular physical activity (2) Palpitations: Code(s): R00.2 - Palpitations Category: Medical Plan: Symptoms of palpitation with heart rate up to 170 beats per minute although EKG at [facility] shows sinus tachycardia with PVCs. There is no clear evidence of SVT but high likelihood of the same. Will suggest her to have a 3 day Holter monitor to further assess for the same. Agree with metoprolol therapy to treat SVT. Mechanism of SVT was discussed in details. Avoidance of stimulants was discussed. Stress mitigation strategies was discussed. Will follow up 6 weeks time, sooner p.r.n.. Thank you for allowing me to partake in her care Orders: Orders CA echo transthoracic complete Today R06.02 - Shortness of breath CA lexiscan stress w elsa Today R06.02 - Shortness of breath ECG 3 day holter monitor Today R00.2 - Palpitations
== END 2023-07-22 14:35 | disposition home or self-care (01) ==
LOC: HO.HCS 13:41
PROVIDERS: PCP Family Medicine; Visit Provider Internal Medicine Cardiovascular Disease
DX: R06.02 Shortness of breath (principal); R00.2 Palpitations
CPT/HCPCS: 99204

== ENCOUNTER → 2023-07-22 13:41 | Outpatient (BNVA) | payer MEDICARE, OTHER, SELFPAY | PROVIDERS: PCP Family Medicine; Visit Provider Internal Medicine Cardiovascular Disease | DX: R06.02 Shortness of breath (principal); R00.2 Palpitations | CPT/HCPCS: 99202 ==

== ENCOUNTER 2023-08-05 11:33 | Outpatient (AMB) | payer MEDICARE, MEDICAID, SELFPAY ==
--- NOTE | 2023-08-05 11:42 | A.OFFPC_ITS ---
Vital Signs 08/05/23 11:52 Height 5 ft 6 in Weight 215 lb 2 oz BMI 34.7 BP 148/78 H Blood Pressure Location Rt brachial Position Sitting Pulse 66 Pulse Source Pulse Oximeter Pulse Oximetry (%) 99 Oxygen Delivery Method Room Air Intake Visit Reasons: f/u diabetes, hypertension, chronic conditions Intake Note: Patient is here for follow up on diabetes, hypertension, and chronic conditions. Patient would like refills of Aspirin, Atorvastin,, and Metoprolol. Allergies Sulfa (Sulfonamide Antibiotics) Allergy (Severe, Verified 08/05/23 11:48) Anaphylaxis Medication List - Last Reconciled 08/05/23 by Juliocesar Marie MD aspirin 81 mg PO DAILY atorvastatin (Lipitor) 40 mg PO DAILY empagliflozin (Jardiance) 10 mg PO QAM 90 days escitalopram oxalate 20 mg PO DAILY 90 days glimepiride 4 mg PO BID 30 days hydrochlorothiazide 25 mg PO DAILY lisinopril 40 mg PO DAILY 90 days metformin 1,000 mg PO BID methocarbamol 750 mg PO BEDTIME PRN 30 days metoprolol tartrate 25 mg PO DAILY Tobacco use date assessed: 08/05/23 Fall risk assessment: No Falls in past year Last assessed Fall Risk: 08/05/23 Dental Screening Dental Screen Date: 06/28/23 HPI f/u diabetes, hypertension, chronic conditions HPI Details 72 y/o female presents to f/u diabetes, hypertension, chronic conditions. A1c today 08/05/23 7.1%. She is on metformin 1000mg, glimepiride 4mg, Jardiance 10mg. Blood pressure today 148/78, 66p. She is on lisinopril 40mg, HCTZ 25mg daily, metoprolol 25mg. [facility]LY [facility] Medical History Sinusitis GERD (gastroesophageal reflux disease) Liver disease Type 2 diabetes mellitus Surgical History History of adenoidectomy Hx of tonsillectomy History of section History of dilation and curettage History of cholecystectomy History of hysterectomy Family History Mother Hypertension Cardiovascular disease Thyroid disorder Father Diabetes Cardiovascular disease Alcohol abuse Maternal Grandfather Diabetes Paternal Grandfather Diabetes Sister Diabetes Social History Household Members: None Housing: Apartment Alcohol intake: current Alcohol intake frequency: a few times a month Alcohol type: wine Patient Tobacco Use Status: Never used Tobacco e-Cigarette/Vaping Use: Never Used Second Hand Smoke Exposure: No service: No 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 ) Vision needs: Yes (needs new glasses) Questionnaire Thrive Questionnaire Date Thrive assessed: 01/29/23 KATHRYN-7 AMB Questionnaire KATHRYN-7 Date KATHRYN - 7 assessed: 01/29/23 Source: Developed by Drs. Sebas Mejias, Nina French, Yon Cortez and colleagues, with an educational victor manuel from [employer]. Review of Systems Const Denies chills, Denies fatigue, Denies fever(s), Denies headache(s) and Denies weakness ENT Denies dizziness and Denies headache(s) Card Denies dyspnea Resp Denies cough, Denies dyspnea, Denies wheezing and Denies other (shortness of breath) Musc Denies numbness and Denies tingling Neuro Denies dizziness, Denies headache(s), Denies numbness, Denies tingling and Denies weakness Psych Denies anxiety and Denies depression Endo Denies fatigue Aller/Immun Denies wheezing Physical exam (Primary Care) Vital Signs: Last Vital Signs Pulse 66 08/05/23 11:52 BP 148/78 H 08/05/23 11:52 Pulse Ox 99 08/05/23 11:52 Oxygen Delivery Method Room Air 08/05/23 11:52 BMI result Body Mass Index 34.7 Tobacco/Smoking Status: Tobacco use Status Tobacco use date assessed 08/05/23 08/05/23 11:52 Patient Tobacco Use Status Never used Tobacco 08/05/23 11:43 e-Cigarette/Vaping Use Never Used 08/05/23 11:43 Thrive Assessment: Date of Thrive Assessment Date Thrive assessed 01/29/23 08/05/23 11:43 Const General: well developed; No acute distress Nutritional Appearance: well nourished Orientation/consciousness: patient oriented x3 [facility] Head: Yes normocephalic and Yes atraumatic Eyes General: appearance normal, both eyes and all related structures Pupils: Equal, round and reactive pupils present EOM: EOMs intact bilaterally Resp Effort & Inspection: normal respiratory effort Auscultation: clear to auscultation bilaterally Cardio Rate: regular rate Rhythm: regular rhythm Heart sounds: S1 normal heart sound present, S2 normal heart sound present, no gallops, no murmurs and no rubs Neuro General: patient oriented x3 and gait normal Cranial nerves: Yes Equal, round and reactive pupils present Psych Affect: normal affect Results AMB Hemoglobin A1c AMB Hemoglobin A1c 7.1 % Last Edit by Lara Juarez CMA on 08/05/23 12:10 Results Reviewed Results Reviewed: Laboratory Last Values Hgb A1c (Clinic) 7.1 % (4.0-6.0) H 08/05/23 12:09 Assessment and Plan Assessment & Plan (1) Type 2 diabetes mellitus: Code(s): E11.9 - Type 2 diabetes mellitus without complications Plan: A1c?7.1%.??Goal?is?less?than?7.0% Had?tried?sending?Rybelsus?in?the?past?but?this?was?declined?by?insurance.??Will ?try?sending?Trulicity. Continue?glimepiride?and?metoprolol?as?well?as?Jardiance. (2) Hypertension: Code(s): I10 - Essential (primary) hypertension Qualifiers: Hypertension type: primary hypertension Qualified Code(s): I10 - Essential (primary) hypertension Plan: Blood?pressure?is?above?goal?of?less?than?130/80 Continue?metoprolol?and?lisinopril?and?I?am?increasing?hydrochlorothiazide?from? 25?mg?daily?to?50?mg?daily (3) SOB (shortness of breath) on exertion: Code(s): R06.02 - Shortness of breath Plan: Workup?is?still?underway?with?Cardiology Follow-up?with?Cardiology?as?recommended (4) Hyperlipidemia: Code(s): E78.5 - Hyperlipidemia, unspecified Plan: She?is?on?atorvastatin?40?mg?daily Will?recheck?lipids?with?next?blood?draw (5) Screening for osteoporosis: Code(s): Z13.820 - Encounter for screening for osteoporosis Plan: Discussed?with?patient?that?she?has?osteopenia Ensure?good?sources?of?calcium?and?vitamin-D.??Encouraged?routine?exercise Orders: Orders AMB Hemoglobin A1c Today Z13.9 - Encounter for screening, unspecified Lipid Panel Today E78.5 - Hyperlipidemia, unspecified, Z00.00 - Encounter for general adult medical examination without abnormal findings Comprehensive Lucas. Panel Fast Today E78.5 - Hyperlipidemia, unspecified, Z00.00 - Encounter for general adult medical examination without abnormal findings Medications: New dulaglutide (Trulicity) 0.75 mg (0.5 mL) subcut QWEEK 28 days 2 mL 3RF Changed From metformin 1,000 mg PO BID To metformin 1,000 mg PO BID 90 days 180 tabs 3RF From hydrochlorothiazide 25 mg PO DAILY To hydrochlorothiazide 50 mg PO DAILY 90 days 90 tabs 2RF From aspirin 81 mg PO DAILY To aspirin 81 mg PO DAILY 90 days 90 tabs 3RF From atorvastatin (Lipitor) 40 mg PO DAILY To atorvastatin (Lipitor) 40 mg PO DAILY 90 days 90 tabs 3RF From metoprolol tartrate 25 mg PO DAILY To metoprolol tartrate 25 mg PO DAILY 90 days 90 tabs 3RF Refilled empagliflozin (Jardiance) 10 mg PO QAM 90 days 90 tabs 3RF lisinopril 40 mg PO DAILY 90 days 90 tabs 2RF Coding Level of Care Code Est Pt Level 4 (13758) Diagnoses Type 2 diabetes mellitus E11.9 Primary hypertension I10 Hypertension type: primary hypertension SOB (shortness of breath) on exertion R06.02 Hyperlipidemia E78.5 Screening for osteoporosis Z13.820
[2023-08-05 11:52] VITALS: BP 148/78; PULSE 66; O2SAT 99; BMI 34.7
== END 2023-08-05 13:19 | disposition home or self-care (01) ==
PROVIDERS: PCP Family Medicine; Visit Provider Family Medicine
DX: E11.69 Type 2 diabetes mellitus with other specified complication (principal); I10 Essential (primary) hypertension; R06.02 Shortness of breath; E78.5 Hyperlipidemia, unspecified; Z13.820 Encounter for screening for osteoporosis
CPT/HCPCS: 83036; 99214

== ENCOUNTER → 2023-08-30 08:00 | Outpatient (REF) | payer MEDICARE, OTHER, SELFPAY ==
--- NOTE | ~2023-08-30 | NM_ITS ---
Exercise Myocardial perfusion study Indication: Shortness of breath evaluate for myocardial ischemia Technique: The patient was brought in for an exercise perfusion study on 08/30/2023. Patient performed exercise as per Martin protocol and was injected 30 mCi of sestamibi was given intravenously one target HR was achieved. Images were obtained using the SPECT gamma camera interlaced with the gating device. Images were obtained in supine position. Resting perfusion study was performed on 09/03/2023. Patient was administered 30 mCi of sestamibi intravenously at rest. Images were then obtained in supine position. Images obtained with and without CT attenuation. Total DLP 157 mGy-cm. Images were processed with the software and compared side to side in short axis, horizontal long axis and vertical long axis views. Findings: The stress perfusion study showed non attenuated images show some thinning of the distal lateral wall of the was normal uptake of radiotracer in all segments of LV myocardium. Attenuation corrected images show minimally reduced uptake in the apex of the LV myocardium. The gated study shows normal LV systolic function with gated LVEF of greater than 55%. LV cavity is normal in size. The gated study shows normal systolic wall thickening and contraction of all segments. There is no transient ischemic dilation. Resting study shows no change in perfusion pattern compared to stress perfusion study. Gating at rest reveals normal systolic wall motion with ejection fraction at 57%. The findings are consistent with normal myocardial perfusion. NM/NM elsa perf SPECT rest & str Impression: 1. Normal myocardial perfusion 2. Gated LVEF is 57% 3. Transient ischemic dilatation not present Stress EKG is negative for ischemia
--- NOTE | 2023-08-30 08:06 | HM_ITS ---
Conclusion: 1. Patient was monitored for total period of 3 days and 21 hours 2. Baseline was normal sinus rhythm with average heart of 63 beats per minute 3. No significant pauses noted 4. Frequent isolated PVCs noted with total burden of 1.9% 5. Occasional PACs noted with no significant prolonged SVT 6. No patient reported events MTDD
--- NOTE | 2023-08-30 08:06 | CA_ITS ---
Acquisition Time: 2023-08-30 09:14:17 Total Exercise Time: 00:02:00 Test Indications: Dyspnea ABN EKG ELEVATED TROP Medications: SEE H Protocol: LEXISCAN Max HR: 104 BPM 70% of Pred: 148 BPM Max BP: 162/068 mmHG Max Work Load: 1.6 METS Pharmacological stress test with Lexiscan injection while walking slowly on the treadmill for 2 minutes, without anginal symptoms, with isolated PVCs, with normotensive response to injection, with nondiagnoisitic EKGs. Nuclear images pending. Test revieed with Dr. Mayen Referred By: Cedric Castaneda Overread By: Karina Barnett
--- NOTE | 2023-08-30 08:06 | CA_ITS ---
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 The calculated ejection fraction is 65% by biplane method. - There is moderate septal and moderate basal asymmetric hypertrophy. - There is mild calcification of the aortic valve. - No obvious valvular pathology seen on this study. Findings Left Ventricle Normal left ventricular cavity size. The left ventricular systolic function is normal. The calculated ejection fraction is 65% by biplane method. There is no evidence of regional wall motion abnormalities. Evidence suggests grade I (mild) diastolic dysfunction. There is moderate septal and moderate basal asymmetric hypertrophy. LV peak GLS -18.6%. Right Ventricle Normal right ventricular cavity size and systolic function. Atria The left atrium is moderately dilated. The right atrium is normal in size. Aortic Valve There is a normal trileaflet aortic valve. There is mild calcification of the aortic valve. There is no aortic valve stenosis. There is no aortic valve regurgitation. Mitral Valve The mitral valve appears normal. There is trace mitral valve regurgitation. There is no mitral valve stenosis. Pulmonic Valve The pulmonic valve is likely normal. Tricuspid Valve Normal tricuspid valve structure. There is trace tricuspid valve regurgitation. There is no evidence of pulmonary hypertension. Great Vessels The asc aorta is normal in size. Venous The inferior vena cava is normal in size and collapses greater than 50% with inspiration. Pericardium/Pleural There is no evidence of pericardial effusion. Prior Study Comparison No prior study available for comparison. Recommendations, Care & Conclusions No obvious valvular pathology seen on this study. Measurements 2D Linear Measurements IVSd: 1.44 0.6-0.9/0.6-1.0 cm LVIDd: 4.19 3.9-5.3/4.2-5.9 cm LVIDd Index: 2.10 2.4-3.2/2.2-3.1 cm/m2 LVIDs: 2.88 2.0-3.6 cm LVPWd: 0.96 0.7-1.1 cm LA Diam: 4.30 2.7-3.8/3.0-4.0 cm LAIDs Index: 2.15 1.5-2.3 cm/m2 LV Mass: 221.14 67-162/88-224 g LV Mass Index: 110.57 43-95/49-115 g/m2 LVOT Diam: 2.20 3.0+(-)1.3 cm 2D Systolic Function EF 4C: 68.10 >55% EF 2C: 61.70 >55% EF BiP: 64.60 >55% Mitral Valve MV Pk E: 0.47 MV PK A: 0.54 MV Decel Time: 269.00 E/A: 0.90 E'Lateral: 6.64 E'Medial: 4.03 E/E' Med: 11.70 E/E' Lat: 7.10 PHT: 79.00 MVA PHT: 2.78 Decel Shoshone: 1.75 Aortic Valve AoV Pk Pavel: 1.42 AoV Mn Pavel: 0.91 AoV VTI: 0.33 AoV Pk Grad: 8.00 Aov Mn Grad: 4.00 DENA Cont.VTI: 2.69 LVOT LVOT Pk Pavel: 0.94 LVOT Mn Pavel: 0.57 LVOT VTI: 0.24 LVOT Pk Grad: 4.00 LVOT Mn Grad: 2.00 LVOT Diam: 2.20 LVOT Area: 3.80 Diastolic Function MV Pk E: 0.47 MV Pk A: 0.54 E/A: 0.90 E'Medial: 4.03 E/E' Med: 11.70 E' Laterial: 6.64 E/E' Lat: 7.10 Right Ventricle TAPSE (mm): 23.80 TVS' Pavel: 12.70 Tricuspid Valve TR Pk Pavel: 1.97 TR Pk Grad: 16.00 RA Press: 8.00 RVSP: 24.00 Great Vessels Aorta Sinus of Valsalva: 3.17 2.0-3.5 cm Ao Asc: 3.60 2.1-3.4 cm Updated in Other Vendor System with Status of Final Edmund Mayen MD electronically signed on 08/31/2023 11:54:36 AM with status of Final
== END ==
LOC: HO.CARD 08:00
PROVIDERS: PCP Family Medicine; Visit Provider Internal Medicine Cardiovascular Disease
DX: R00.2 Palpitations (principal); R06.02 Shortness of breath
CPT/HCPCS: 78452; 93017; 93242; 93306; 93356; A9500; J0280; J2785

== ENCOUNTER → 2023-08-30 08:06 | Outpatient (BNV) | payer MEDICARE, MEDICAID, SELFPAY | PROVIDERS: PCP Family Medicine; Visit Provider Nurse Practitioner | DX: I49.3 Ventricular premature depolarization (principal) | CPT/HCPCS: 78452; 93016; 93018; 93244; 93350; 93356 ==

== ENCOUNTER 2023-09-26 14:01 | Outpatient (AMB) | payer MEDICARE, MEDICAID, SELFPAY ==
[2023-09-26 14:09] VITALS: BP 132/70; PULSE 72; BMI 34.9
--- NOTE | 2023-09-26 14:09 | A.OFFVIS_ITS ---
Vital Signs 09/26/23 14:09 Height 5 ft 6 in Weight 216 lb 0.848 oz BMI 34.9 BP 132/70 Blood Pressure Location Lt brachial Position Sitting Pulse 72 Pulse Source Pulse Oximeter Intake Visit Reasons: 2 mth f/up testing / NS Allergies Sulfa (Sulfonamide Antibiotics) Allergy (Severe, Verified 08/05/23 11:48) Anaphylaxis Medication List - Last Reconciled 09/26/23 by Natalya Dao NP-C aspirin 81 mg PO DAILY 90 days atorvastatin (Lipitor) 40 mg PO DAILY 90 days blood sugar diagnostic As directed QD dulaglutide (Trulicity) 0.75 mg (0.5 mL) subcut QWEEK 28 days escitalopram oxalate 20 mg PO DAILY 90 days glimepiride 4 mg PO BID 30 days hydrochlorothiazide 50 mg PO DAILY 90 days lancets As directed QD lisinopril 40 mg PO DAILY 90 days metformin 1,000 mg PO BID 90 days methocarbamol 750 mg PO BEDTIME PRN 30 days metoprolol tartrate 25 mg PO DAILY 90 days HPI HPI 2 mth f/up testing / NS: Details: Kylie is a 72-year-old female past medical history of hypertension, hyperlipidemia, diabetes, possible history of SVT who was being evaluated for abnormal EKG. She recently underwent an echocardiogram, Holter monitor and nuclear stress test and now presents for follow-up. Today she reports she has been feeling well since her last visit in June. She has not had any issues with sustained rapid heartbeats. She will feel occasional brief heart palpitations. Brief lightheadedness at times when going from a laying down to sitting up position. No presyncope, syncope, falls. No chest discomfort at rest or with activity. She does have some shortness of breath when climbing stairs. She describes having anxiety at times which gives her the heart palpitations. No chest discomfort at rest or with activity. Compliant with meds. [facility] Medical History Sinusitis GERD (gastroesophageal reflux disease) Liver disease Type 2 diabetes mellitus Surgical History History of adenoidectomy Hx of tonsillectomy History of section History of dilation and curettage History of cholecystectomy History of hysterectomy Family History Mother Hypertension Cardiovascular disease Thyroid disorder Father Diabetes Cardiovascular disease Alcohol abuse Maternal Grandfather Diabetes Paternal Grandfather Diabetes Sister Diabetes Other Type 2 diabetes mellitus Social History Household Members: None Housing: Apartment Alcohol intake: current Alcohol intake frequency: a few times a month Alcohol type: wine Patient Tobacco Use Status: Never used Tobacco e-Cigarette/Vaping Use: Never Used Second Hand Smoke Exposure: No service: No 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 ) Vision needs: Yes (needs new glasses) Review of Systems Const All systems reviewed & are unremarkable except as noted in HPI and below Denies weakness ENT Denies dizziness Card Denies chest pain, Denies chest pain with activity, Denies syncope, Reports rapid heart rate, Denies pedal edema, Denies edema, Denies leg edema, Denies lightheadedness, Denies palpitations, Denies dyspnea, Denies dyspnea on exertion and Denies orthopnea Resp Denies cough, Denies dyspnea and Denies dyspnea on exertion GI Denies hematochezia and Denies change in stool character Musc Denies abnormal gait, Denies muscle cramps, Denies muscle weakness, Denies numbness, Denies radiating pain into limb and Denies tingling Neuro Denies abnormal gait, Denies dizziness, Denies syncope, Denies numbness, Denies tingling and Denies weakness Endo Denies palpitations Physical Exam Vital Signs: Last Vital Signs Pulse 72 09/26/23 14:09 BP 132/70 09/26/23 14:09 BMI result Body Mass Index 34.9 Const General: cooperative, healthy appearing, comfortable and no acute distress Orientation/consciousness: patient oriented x3 Neck Neck: Yes normal visual inspection Resp Effort & Inspection: normal respiratory effort Auscultation: clear to auscultation bilaterally, no rales, no rhonchi and no wheezes Cardio Jugular venous distension: no JVD Rate: regular rate Rhythm: regular rhythm Heart sounds: S1 normal heart sound present, S2 normal heart sound present, no murmurs and no rubs Neuro General: patient oriented x3 Extrem General: Yes normal to inspection, No no pedal edema and No calf tenderness Psych Appearance: grossly normal Mental Status: mental status grossly normal Speech and movement: Normal speech and movement present Assessment & Plan Assessment & Plan (1) Abnormal EKG: Code(s): R94.31 - Abnormal electrocardiogram [ECG] [EKG] Category: Medical Plan: EKG done on prior visit showing sinus rhythm, can not exclude prior inferior infarct. She has no known history of heart disease. She does have multiple cardiac risk factors including hypertension, hyperlipidemia, diabetes, obesity. She has shortness of breath at times with physical activity, no chest discomfort. An echocardiogram done 08/30/2023 showed EF 65%, moderate septal and basal asymmetric hypertrophy. A nuclear stress test done on 09/03/2023 showed normal myocardial perfusion imaging. Test results reviewed with her in detail. Continue with cardiac risk factor modification. Continue aspirin, atorvastatin with ideal LDL goal less than 70, continue metoprolol. Blood pressure currently normal range. Signs and symptoms of angina reviewed with her. Cardiology follow-up 6 months, sooner if needed (2) Palpitations: Code(s): R00.2 - Palpitations Category: Medical Plan: Report of intermittent heart palpitations. She also believes that she has history of SVT. She did have prior ER evaluation and states it was for tachycardia. Holter monitor done on 08/30/2023 for 4 days shows sinus rhythm with average heart rate 63, PVCs 1.9% of time, occasional PACs, no SVT. She still may have history of SVT. Will have her continue on low-dose metoprolol. Emergency care if ever needed for sustained rapid heart palpitations. Reduction in stimulants reviewed. (3) SOB (shortness of breath) on exertion: Code(s): R06.02 - Shortness of breath Category: Medical Plan: As above (4) PVCs (premature ventricular contractions): Code(s): I49.3 - Ventricular premature depolarization Category: Medical Plan: Frequent PVCs seen on Holter monitor, 1.9%. Continue metoprolol low dose. (5) Hypertension: Code(s): I10 - Essential (primary) hypertension Category: Medical Qualifiers: Hypertension type: primary hypertension Qualified Code(s): I10 - Essential (primary) hypertension Plan: Normal range today, 132/70. Continue current metoprolol, lisinopril, hydrochlorothiazide. Managed by her PCP. Plan Time spent on chart review, documentation, interview assessment Coding Level of Care Code Est Pt Level 4 (78302) Diagnoses Abnormal EKG R94.31 Palpitations R00.2 SOB (shortness of breath) on exertion R06.02 PVCs (premature ventricular contractions) I49.3 Primary hypertension I10 Hypertension type: primary hypertension Time Spent (min) 28
== END 2023-09-26 14:49 | disposition home or self-care (01) ==
PROVIDERS: PCP Family Medicine; Visit Provider Nurse Practitioner Family
DX: R94.31 Abnormal electrocardiogram [ECG] [EKG] (principal); R00.2 Palpitations; R06.02 Shortness of breath; I49.3 Ventricular premature depolarization; I10 Essential (primary) hypertension
CPT/HCPCS: 99214

== ENCOUNTER → 2023-09-26 14:01 | Outpatient (BNVA) | payer MEDICARE, MEDICAID, SELFPAY | PROVIDERS: PCP Family Medicine; Visit Provider Nurse Practitioner Family | DX: R94.31 Abnormal electrocardiogram [ECG] [EKG] (principal); R00.2 Palpitations; R06.02 Shortness of breath; I49.3 Ventricular premature depolarization; I10 Essential (primary) hypertension | CPT/HCPCS: 99212 ==

== ENCOUNTER 2023-10-30 11:23 | Outpatient (REF) | payer MEDICARE, MEDICAID, SELFPAY ==
[2023-10-30 14:20] LABS: Appearance Urine Clear; Color Urine Yellow; Glucose Urine UA Negative (Negative); Leukocyte Esterase Urine Small (1+) (Negative); Nitrite Urine Negative (Negative); PH 5.5 (5.0-9.0); Specific Gravity - Urine 1.015 (1.005-1.025); UMIC TRIGGER UA YES; Urine Blood Negative (Negative); Urine Ketones Negative (Negative); Urine Protein Negative (Neg-Trace)
[2023-10-30 14:26] LABS: Bacteria Urine None Seen (None Seen); Hyaline Casts Urine 0-2 /LPF (0-2); RBC Urine 0-2 /HPF (0-2)
[2023-10-30 14:59] LABS: Alanine Aminotransferase 22 U/L (0-31); Albumin Level 4.2 g/dL (3.5-5.0); Alkaline Phosphatase 42 U/L (39-117); Anion Gap 11 (12-20); Aspartate Amino Transferase 19 U/L (5-31); Bilirubin Total 0.3 mg/dL (0.0-1.0); Blood Urea Nitrogen 18 mg/dL (9-16); Calcium 9.7 mg/dL (8.4-10.2); Carbon Dioxide 29 mmol/L (22-29); Chloride 99 mmol/L (96-108); Cholesterol 110 mg/dL (<200); Estimated Glomerular Filt Rate > 60; Glucose Fasting 108 mg/dL (60-99); HDL Cholesterol 54 mg/dL (>40); LDL Cholesterol Calculated 33 mg/dL (<100); Sodium 135 mmol/L (135-145); Total Protein 6.6 g/dL (6.5-8.0); Triglycerides 118 mg/dL (<150)
== END 2023-10-30 11:24 | disposition home or self-care (01) ==
LOC: HO.WFDLDS 11:23
PROVIDERS: Visit Provider Family Medicine
DX: Z00.00 Encounter for general adult medical examination without abnormal findings (principal); I10 Essential (primary) hypertension; E78.5 Hyperlipidemia, unspecified
CPT/HCPCS: 36415; 80053; 80061; 81001

== ENCOUNTER 2023-11-08 14:45 | Outpatient (AMB) | payer MEDICARE, MEDICAID, SELFPAY ==
--- NOTE | 2023-11-08 14:49 | A.OFFPC_ITS ---
Vital Signs 11/08/23 14:56 Height 5 ft 5 in Weight 217 lb 4 oz BMI 36.1 BP 110/80 Blood Pressure Location Rt brachial Position Sitting Respiration 16 Pulse 60 Pulse Source Pulse Oximeter Temp 98.5 F Temp Source Oral Pulse Oximetry (%) 98 Oxygen Delivery Method Room Air Intake Visit Reasons: /u diabetes, hypertension resh from 11/05 Intake Note: follow up for hypertension and diabetes Allergies Sulfa (Sulfonamide Antibiotics) Allergy (Severe, Verified 11/08/23 14:54) Anaphylaxis Tobacco use date assessed: 08/05/23 Dental Screening Dental Screen Date: 06/28/23 HPI /u diabetes, hypertension resh from 11/05 HPI Details 73 y/o female presents to f/u diabetes, hypertension. Last A1c 08/05/23 7.1%. Had added Trulicity last office visit. A1c today 11/08/23 6.2%. She is on Trulicity 0.75mg, metformin 1000mg b.i.d, glimpepride 4mg b.i.d. No longer taking Jardiance Blood pressure today 110/80. She is on metoprolol 25mg, lisinopril 40mg, hydrochlorothiazide 50mg daily. Pt reports tachycardia when waking up. She reports difficulty sleeping. She notes her kids tell her she snores. Has hx of sleep apnea. Has complaints of R knee pain and intermittent swelling x1 month and a half. PFSH Medical History Sinusitis GERD (gastroesophageal reflux disease) Liver disease Type 2 diabetes mellitus Surgical History History of adenoidectomy Hx of tonsillectomy History of section History of dilation and curettage History of cholecystectomy History of hysterectomy Family History Mother Hypertension Cardiovascular disease Thyroid disorder Father Diabetes Cardiovascular disease Alcohol abuse Maternal Grandfather Diabetes Paternal Grandfather Diabetes Sister Diabetes Other Type 2 diabetes mellitus Social History Household Members: None Housing: Apartment Alcohol intake: current Alcohol intake frequency: a few times a month Alcohol type: wine Patient Tobacco Use Status: Never used Tobacco e-Cigarette/Vaping Use: Never Used Second Hand Smoke Exposure: No service: No 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 ) Vision needs: Yes (needs new glasses) Questionnaire Thrive Questionnaire Date Thrive assessed: 01/29/23 KATHRYN-7 AMB Questionnaire KATHRYN-7 Date KATHRYN - 7 assessed: 01/29/23 Source: Developed by Drs. Sebas Mejias, Nina French, Yon Cortez and colleagues, with an educational victor manuel from [employer]. Review of Systems Const Denies chills, Denies fatigue, Denies fever(s), Denies headache(s) and Denies weakness ENT Denies dizziness and Denies headache(s) Card Denies dyspnea Resp Denies cough, Denies dyspnea, Denies wheezing and Denies other (shortness of breath) Musc Details: Knee pain Denies numbness and Denies tingling Neuro Denies dizziness, Denies headache(s), Denies numbness, Denies tingling and Denies weakness Psych Denies anxiety and Denies depression Endo Denies fatigue Aller/Immun Denies wheezing Physical exam (Primary Care) Vital Signs: Last Vital Signs Temp 98.5 F 11/08/23 14:56 Pulse 60 11/08/23 14:56 Resp 16 11/08/23 14:56 BP 110/80 11/08/23 14:56 Pulse Ox 98 11/08/23 14:56 Oxygen Delivery Method Room Air 11/08/23 14:56 BMI result Body Mass Index 36.1 Tobacco/Smoking Status: Tobacco use Status Tobacco use date assessed 08/05/23 11/08/23 14:50 Patient Tobacco Use Status Never used Tobacco 11/08/23 14:50 e-Cigarette/Vaping Use Never Used 11/08/23 14:50 Thrive Assessment: Date of Thrive Assessment Date Thrive assessed 01/29/23 11/08/23 14:50 Const General: well developed; No acute distress Nutritional Appearance: well nourished Orientation/consciousness: patient oriented x3 HENMT Head: Yes normocephalic and Yes atraumatic Eyes General: appearance normal, both eyes and all related structures Pupils: Equal, round and reactive pupils present EOM: EOMs intact bilaterally Resp Effort & Inspection: normal respiratory effort Auscultation: clear to auscultation bilaterally Cardio Rate: regular rate Rhythm: regular rhythm Heart sounds: S1 normal heart sound present, S2 normal heart sound present, no gallops, no murmurs and no rubs Neuro General: patient oriented x3 and gait normal Cranial nerves: Yes Equal, round and reactive pupils present Psych Affect: normal affect Assessment and Plan Assessment & Plan (1) Type 2 diabetes mellitus: Code(s): E11.9 - Type 2 diabetes mellitus without complications Plan: A1c?much?improved?now?at?6.2%.??Goal?is?less?than?7.0% Continue?current?medications (2) Hypertension: Code(s): I10 - Essential (primary) hypertension Qualifiers: Hypertension type: primary hypertension Qualified Code(s): I10 - Essential (primary) hypertension Plan: Blood?pressure?is?controlled.??Goal?is?less?than?130/80 Continue?current?medication?regimen (3) SOB (shortness of breath) on exertion: Code(s): R06.02 - Shortness of breath Plan: Thorough?workup?by?Cardiology. Does?not?appear?to?be?due?to?any?ischemia She?is?on?metoprolol?for?tachycardia?and?SVT Continue?current?medication She?does?note?some?rapid?heartbeat?and?shortness?of?breath?when?she?wakes?up?in? the?morning?and?has?symptoms?consistent?with?sleep?apnea-see?below (4) Sleep apnea: Code(s): G47.30 - Sleep apnea, unspecified Plan: Patient?was?told?that?she?has?moderate?sleep?apnea?but?left?her?prior ?physician?and?moved?to?this?area?before?treatment?was?initiated Referred?to?Sleep?Medicine (5) Knee pain: Code(s): M25.569 - Pain in unspecified knee Plan: Pain?at?lateral?aspect?of?right?knee?in?right?knee?joint?space.??Patient?notes?i ntermittent?effusions Check?x-ray Trial?physical?therapy May?need?referral?to?Ortho Orders: Orders XR knee RT 3V Today M25.569 - Pain in unspecified knee Comprehensive [place]. Panel Fast Today E78.5 - Hyperlipidemia, unspecified, Z00.00 - Encounter for general adult medical examination without abnormal findings PT Evaluation and Treatment Today M25.569 - Pain in unspecified knee Lipid Panel Today E78.5 - Hyperlipidemia, unspecified, Z00.00 - Encounter for general adult medical examination without abnormal findings Referrals Nurse Navigator Referral E11.9 - Type 2 diabetes mellitus without complicatio ns Sleep Medicine Referral G47.30 - Sleep apnea, unspecified Medications: New rosuvastatin 20 mg PO DAILY 90 days 90 tabs 2RF Discontinued atorvastatin (Lipitor) Discontinued Reason: Doctor's Order 40 mg PO DAILY 90 days 90 tabs 3RF Coding Level of Care Code Est Pt Level 4 (09526) Diagnoses Type 2 diabetes mellitus E11.9 Primary hypertension I10 Hypertension type: primary hypertension SOB (shortness of breath) on exertion R06.02 Sleep apnea G47.30 Knee pain M25.569
[2023-11-08 14:56] VITALS: BP 110/80; PULSE 60; RESP 16; TEMP 36.9; O2SAT 98; BMI 36.1
== END 2023-11-08 15:42 | disposition home or self-care (01) ==
PROVIDERS: PCP Family Medicine; Visit Provider Family Medicine
DX: E11.9 Type 2 diabetes mellitus without complications (principal); I10 Essential (primary) hypertension; R06.02 Shortness of breath; G47.30 Sleep apnea, unspecified; M25.569 Pain in unspecified knee
CPT/HCPCS: 99214

== ENCOUNTER 2023-11-12 16:21 | Outpatient (REF) | payer MEDICARE, MEDICAID, SELFPAY ==
--- NOTE | ~2023-11-12 | XR_ITS ---
EXAMINATION: XR KNEE, RIGHT CLINICAL INFORMATION: Pain COMPARISON: None available. TECHNIQUE: Four views of the right knee. FINDINGS: No fracture or joint effusion. Alignment is anatomic. Joint spaces are maintained with minimal marginal spurring at the medial and lateral compartments of the knee but no joint space is narrowing seen.. No abnormal soft tissue calcification. XR/XR knee RT 3V IMPRESSION: Mild degenerative change
== END 2023-11-12 16:22 | disposition home or self-care (01) ==
LOC: HO.XRAY 16:21
PROVIDERS: PCP Family Medicine; Visit Provider Family Medicine
DX: M25.561 Pain in right knee (principal)
CPT/HCPCS: 73562

== ENCOUNTER 2023-12-26 13:55 | Outpatient (RCR) | payer MEDICARE, MEDICAID, SELFPAY ==
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
== END 2024-01-14 12:06 | disposition home or self-care (01) ==
LOC: HO.PTWFD 13:55
PROVIDERS: PCP Family Medicine; Visit Provider Family Medicine
DX: M25.569 Pain in unspecified knee (principal)
CPT/HCPCS: 97110; 97140; 97161

== ENCOUNTER 2024-02-11 13:57 | Outpatient (AMB) | payer MEDICARE, MEDICAID, SELFPAY ==
--- NOTE | 2024-02-11 14:25 | A.OFFPC_ITS ---
Vital Signs 02/11/24 14:30 Height 5 ft 5 in Weight 214 lb BMI 35.6 BP 150/80 H Blood Pressure Location Rt brachial Position Sitting Respiration 16 Pulse 69 Pulse Source Pulse Oximeter Temp 98.3 F Temp Source Oral Pulse Oximetry (%) 97 Oxygen Delivery Method Room Air Intake Visit Reasons: f/u diabetes, HLD Intake Note: f/u diabetes and labs Allergies Sulfa (Sulfonamide Antibiotics) Allergy (Severe, Verified 02/11/24 14:28) Anaphylaxis Medication List - Last Reconciled 02/11/24 by Juliocesar Marie MD aspirin 81 mg PO DAILY 90 days blood sugar diagnostic As directed QD commode As directed raised commode seat that can be taken apart to place over toilet dulaglutide (Trulicity) 0.75 mg (0.5 mL) subcut QWEEK 28 days escitalopram oxalate 20 mg PO DAILY 90 days glimepiride 4 mg PO QAM 90 days hydrochlorothiazide 50 mg PO DAILY 90 days lancets As directed QD lisinopril 40 mg PO DAILY 90 days metformin 1,000 mg PO BID 90 days methocarbamol 750 mg PO BEDTIME PRN 30 days metoprolol tartrate 25 mg PO DAILY 90 days miscellaneous medical supply Diabetic Shoes, Daily As directed, 999 days rosuvastatin 20 mg PO DAILY 90 days spironolactone 25 mg PO DAILY 90 days trazodone 1 to 2 tabs orally bedtime PRN; 30 days Tobacco use date assessed: 08/05/23 Dental Screening Dental Screen Date: 06/28/23 HPI f/u diabetes, HLD HPI Details 73 y/o female presents to f/u diabetes, HLD. No recent labs to review. Last A1c 08/05/23 7.1%. A1c today 02/11/24 6.2%. She is on Trulicity, glimepiride and metformin. Has only been taking glimepiride once a day. She is on rosuvastatin for her lipids. Blood pressure today 150/80, 69p. She is on lisinopril 40mg, hydrochlorothiazide 50mg, metoprolol 25mg daily. Notes ongoing knee pain. Also reports R shoulder pain. HPI Comments History of Present Illness Details Documentation assistance for Juliocesar Marie MD, was provided by Iván Mares,? [employer] on 02/11/2024 at 2:45 PM EST. Estrada, Dr. Marie, have read, observed, and verified documentation. [facility] Medical History Sinusitis GERD (gastroesophageal reflux disease) Liver disease Type 2 diabetes mellitus Surgical History History of adenoidectomy Hx of tonsillectomy History of section History of dilation and curettage History of cholecystectomy History of hysterectomy Family History Mother Hypertension Cardiovascular disease Thyroid disorder Father Diabetes Cardiovascular disease Alcohol abuse Maternal Grandfather Diabetes Paternal Grandfather Diabetes Sister Diabetes Other Type 2 diabetes mellitus Social History Household Members: None Housing: Apartment Alcohol intake: current Alcohol intake frequency: a few times a month Alcohol type: wine Patient Tobacco Use Status: Never used Tobacco e-Cigarette/Vaping Use: Never Used Second Hand Smoke Exposure: No service: No 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 ) Vision needs: Yes (needs new glasses) Questionnaire PHQ-9 Over the last 2 weeks, how often have you been bothered by any of the following problems? 1. Little interest or pleasure in doing things: not at all 2. Feeling down, depressed, or hopeless: not at all 3. Trouble falling or staying asleep, or sleeping too much: more than half the days 4. Feeling tired or having little energy: several days 5. Poor appetite or overeating: not at all 6. Feeling bad about yourself - or that you are a failure or have let yourself or your family down: several days 7. Trouble concentrating on things, such as reading the newspaper or watching television: not at all 8. Moving or speaking so slowly that other people could have noticed. Or the opposite - being so fidgety or restless that you have been moving around a lot more than usual: not at all 9. Thoughts that you would be better off or of hurting yourself in some way: not at all Total score: 4 Source: Developed by Drs. Sebas Mejias, Nina French, Yon Cortez and colleagues, with an educational victor manuel from [employer]. Thrive Questionnaire Date Thrive assessed: 01/29/23 I am a: Patient What is your living situation today?: I have a place to live, but I am worried about losing it in the future Within the past 12 months, did the food you bought not last and you didn't have the money to get more?: Sometimes True Within the past 12 months, did you worry whether your food would run out before you got money to buy more?: Sometimes True Do you have trouble paying for medicines?: No Do you have trouble getting transportation to medical appointments?: No Do you have trouble paying your heating and electricity bill?: No Do you have trouble taking care of your child, family member or friend?: Yes Do you have trouble with day-to-day activities such as bathing, preparing meals, shopping, managing finances, etc.?: Yes Are you currently unemployed and looking for a job?: No Are you interested in more education?: Yes Please select the resources that you would like help with: None Currently or been in a relationship where the following occur: Controlled Emotionally THRIVE Score: 4 AUDIT C Alcohol Use Questionnaire (AUDIT-C) 1. How often do you have a drink containing alcohol?: 2-4 times a month 2. How many drinks containing alcohol do you have on a typical day when you are drinking?: 1 or 2 3. How often do you have six or more drinks on one occasion?: Never Total Score: 2 KATHRYN-7 AMB Questionnaire KATHRYN-7 Date KATHRYN - 7 assessed: 01/29/23 Feeling nervous, anxious, or on edge: 1 = Several days Not being able to stop or control worryin = Several days Worrying too much about different things: 0 = Not at all Trouble relaxin = Several days Being so restless that it is hard to sit still: 0 = Not at all Becoming easily annoyed or irritable: 0 = Not at all Feeling afraid as if something awful might happen: 0 = Not at all Total KATHRYN-7 score (0-4 normal; 5-9 mild; 10-14 moderate; 15-21 severe): 3 Source: Developed by Drs. Sebas Mejias, Nina French, Yon Cortez and colleagues, with an educational victor manuel from [employer]. Review of Systems Const Denies chills, Denies fatigue, Denies fever(s), Denies headache(s) and Denies weakness ENT Denies dizziness and Denies headache(s) Card Denies dyspnea Resp Denies cough, Denies dyspnea, Denies wheezing and Denies other (shortness of breath) Musc Denies numbness and Denies tingling Neuro Denies dizziness, Denies headache(s), Denies numbness, Denies tingling and Denies weakness Psych Denies anxiety and Denies depression Endo Denies fatigue Aller/Immun Denies wheezing Physical exam (Primary Care) Vital Signs: Last Vital Signs Temp 98.3 F 02/11/24 14:30 Pulse 69 02/11/24 14:30 Resp 16 02/11/24 14:30 BP 150/80 H 02/11/24 14:30 Pulse Ox 97 02/11/24 14:30 Oxygen Delivery Method Room Air 02/11/24 14:30 BMI result Body Mass Index 35.6 Tobacco/Smoking Status: Tobacco use Status Tobacco use date assessed 08/05/23 02/11/24 14:27 Patient Tobacco Use Status Never used Tobacco 02/11/24 14:27 e-Cigarette/Vaping Use Never Used 02/11/24 14:27 PHQ-9: PHQ-9 Score PHQ-9: Total score 4 02/11/24 14:45 Thrive Assessment: Date of Thrive Assessment Date Thrive assessed 01/29/23 02/11/24 14:27 Currently or been in a relationship where the following occur: Controlled Emotionally Const General: well developed; No acute distress Nutritional Appearance: well nourished Orientation/consciousness: patient oriented x3 HENMT Head: Yes normocephalic and Yes atraumatic Eyes General: appearance normal, both eyes and all related structures Pupils: Equal, round and reactive pupils present EOM: EOMs intact bilaterally Resp Effort & Inspection: normal respiratory effort Auscultation: clear to auscultation bilaterally Cardio Rate: regular rate Rhythm: regular rhythm Heart sounds: S1 normal heart sound present, S2 normal heart sound present, no gallops, no murmurs and no rubs Neuro General: patient oriented x3 and gait normal Cranial nerves: Yes Equal, round and reactive pupils present Psych Affect: normal affect Coding Level of Care Code Est Pt Level 4 (97367) Diagnoses Type 2 diabetes mellitus E11.9 Primary hypertension I10 Hypertension type: primary hypertension Hyperlipidemia E78.5 Knee pain M25.569 Right shoulder pain M25.511 Sleep apnea G47.30 Assessment & Plan Assessment & Plan (1) Type 2 diabetes mellitus: Code(s): E11.9 - Type 2 diabetes mellitus without complications Category: Medical Plan: A1c?6.2%?today.??Good?control.??Goal?is?less?than?7.0% She?had?decreased?glimepiride?4?mg?from?2?times?a?day?to?once?per?day Continue?metformin?in?Trulicity?as?prescribed.??Take?glimepiride?4?mg?once?daily (2) Hypertension: Code(s): I10 - Essential (primary) hypertension Category: Medical Qualifiers: Hypertension type: primary hypertension Qualified Code(s): I10 - Essential (primary) hypertension Plan: Blood?pressure?is?too?high. Patient?says?that?she?had?been?told?to?take?hydrochlorothiazide?50?mg?twice?a?da y.??Unclear?where?this?came?from?as?at?my?last?visit ?she?was?taking?hydrochlorothiazide?once?daily?and?blood?pressure?was?well?contr olled?so?I?had?advised?no?changes. She?is?currently?taking?this?once?a?day?again?and?blood?pressure?is?high. Will?add?sp ironolactone?and?she?will?take?lisinopril?and?metoprolol?as?prescribed.??She?yuniel l?take?hydrochlorothiazide?once?per?day?as?prescribed Will?follow-up?in?a?month (3) Hyperlipidemia: Code(s): E78.5 - Hyperlipidemia, unspecified Category: Medical Plan: Patient?is?on?rosuvastatin.??Cholesterol?levels?appear?well?controlled Continue?medication?as?prescribed (4) Knee pain: Code(s): M25.569 - Pain in unspecified knee Category: Medical Plan: Right?knee?pain?and?x-ray?shows?degenerative?changes Physical?therapy?has?not?helped Referred?to?ortho?at?patient?request (5) Right shoulder pain: Code(s): M25.511 - Pain in right shoulder Category: Medical Plan: Ongoing?right?shoulder?pain?and?referred?to?Ortho?on?patient?request (6) Sleep apnea: Code(s): G47.30 - Sleep apnea, unspecified Category: Medical Plan: Patient?saw?sleep?Medicine?and?has?mild?sleep?apnea?and?was?given?a?CPAP?machine ?which?he?is?using Still?having?difficulty?with?getting?to?sleep Trial?trazodone Orders: Referrals Orthopedics Referral M25.511 - Pain in right shoulder, M25.569 - Pain in unspecified knee Medications: New spironolactone 25 mg PO DAILY 90 days 90 tabs 3RF trazodone 1 to 2 tabs orally bedtime PRN; 30 days 60 tabs 0RF sleep Changed From glimepiride 4 mg PO BID 30 days 60 tabs 0RF To glimepiride 4 mg PO QAM 90 days 90 tabs 2RF
[2024-02-11 14:30] VITALS: BP 150/80; PULSE 69; RESP 16; TEMP 36.8; O2SAT 97; BMI 35.6
== END 2024-02-11 15:09 | disposition home or self-care (01) ==
PROVIDERS: PCP Family Medicine; Visit Provider Family Medicine
DX: E11.9 Type 2 diabetes mellitus without complications (principal); I10 Essential (primary) hypertension; E78.5 Hyperlipidemia, unspecified; M25.569 Pain in unspecified knee; M25.511 Pain in right shoulder; G47.30 Sleep apnea, unspecified

== ENCOUNTER → 2024-02-11 13:57 | Outpatient (BNVA) | payer MEDICARE, MEDICAID, SELFPAY | PROVIDERS: PCP Family Medicine; Visit Provider Family Medicine | DX: E11.9 Type 2 diabetes mellitus without complications (principal); I10 Essential (primary) hypertension; E78.5 Hyperlipidemia, unspecified; M25.511 Pain in right shoulder; G47.30 Sleep apnea, unspecified | CPT/HCPCS: 96127; 99212 ==